=== PATIENT | female | born 1960 | race Caucasian/White ===

== ENCOUNTER 2018-06-23 07:12 | Day surgery (SDC) ==
[2018-06-23] MEDS ORDERED: LIDOCAINE 1% 20 ML MDV ID STA (07:50)
[2018-06-23] MEDS ORDERED: DIPRIVAN 20 ML VIAL IVP ONE (09:07)
[2018-06-23] MEDS ORDERED: VERSED ONE (09:07)
[2018-06-23] MEDS ORDERED: SUBLIMAZE ONE (09:07)
[2018-06-23] MEDS ORDERED: LIDOCAINE 1%-EPI 1:100,000 10 ML (SURGERY) INJ ONE (09:15)
[2018-06-23] MEDS ORDERED: GELFOAM SIZE 50 TP STA (09:15)
[2018-06-23] MEDS ORDERED: NEO-SYNEPHRINE OT PRN (09:35)
[2018-06-23] MEDS ORDERED: POLYSPORIN 0.9 GM PACKET TP STA (09:39)
--- NOTE | 2018-06-26 09:01 | OP ---
PREOPERATIVE DIAGNOSIS: BILATERAL TYMPANIC MEMBRANE PERFORATION. POSTOPERATIVE DIAGNOSIS: BILATERAL TYMPANIC MEMBRANE PERFORATION. OPERATION: BILATERAL TYPE 1 TYMPANOPLASTY. DESCRIPTION OF PROCEDURE: The patient was taken to surgery, placed on the table and general anesthesia was administered. The right ear was prepped and draped in the usual manner. 1 % Xylocaine to 1:100,000 Epinephrine was injected around the external ear canal as well as the tragus. A tragal perichondrial graft was obtained. The edges of the perforation were freshened with a straight pick. A Tympanomeatal flap was created between 6 and 12 o'clock. Dissection carried to the annulus. The annulus was elevated. The middle ear was filled with pledget of Gelfoam. The perichondrial graft was laid on the tympanic membrane and the annulus was placed back in the anatomical position. A small myringotomy site was made for escape of nitrous oxide and gases. After the tympanic membrane was tucked up in proper position, Gelfoam was placed against the surface of the drum. The ear canal was filled with antibiotic ointment. The cartilage graft was placed back in the tragus and incision site was closed using interrupted 6-0 Chromic suture. The patient was then extubated and returned to the recovery room in satisfactory condition. [facility]
[2018-06-27 15:26] VITALS: BP 121/67; TEMP 98.7
== END 2018-06-23 10:45 | disposition home or self-care (01) ==
LOC: SURG 07:12
PROVIDERS: ATTEND Otolaryngology
DX: H72.93 Unspecified perforation of tympanic membrane, bilateral (principal)